=== PATIENT | female | born 1980 | race Caucasian/White ===

== ENCOUNTER 2017-05-23 08:15 | Emergency (ER) | payer MEDICAID ==
[~2017-05-23] VITALS: Ht 167.6 cm; Wt 56.7 kg
[2017-05-23 08:21] VITALS: BP 116/53
[2017-05-23] MEDS ORDERED: ONDANSETRON 4 MG ODT PO ONE (08:40)
--- NOTE | 2017-05-23 08:43 | NUR ---
PATIENT PRESENTS TO ED WITH C/O VOMITING SINCE 0500. PT STATES SHE HAS ABDOMINAL PAIN . DENIES DIARRHEA; SKIN IS PINK/WARM/DRY; AAOX4 WITH EVEN AND STEADY GAIT; LUNGS CLEAR BL; HR EVEN AND REGULAR; PT DENIES ANY FEVER, CP, SOB, OR COUGH AT THIS TIME; PATIENT STATES PAIN OF 0/10 AT THIS TIME; VSS; PATIENT POSITIONED FOR COMFORT; HOB ELEVATED; BEDRAILS UP X2; BED DOWN. ER MD WILL BE NOTIFIED.
--- NOTE | 2017-05-23 08:49 | NUR ---
MILA RAMÍREZ AT BEDSIDE.
--- NOTE | 2017-05-23 08:52 | NUR ---
XRAY AT BEDSIDE.
--- NOTE | 2017-05-23 08:58 | NUR ---
LAB AT BEDSIDE.
[2017-05-23 09:02] LABS: BASOPHILS # (AUTO) 0.1 K/uL (0.00-0.22); EOSINOPHILS # (AUTO) 0.1 K/uL (0-0.4); EOSINOPHILS % (AUTO) 1.4 % (0.0-4.0); HEMATOCRIT 36.3 % (36-48); HEMOGLOBIN 11.8 g/dL (12.0-16.0); LYMPHOCYTES # (AUTO) 0.4 K/uL (2.5-16.5); MEAN CORPUSCULAR HEMOGLOBIN 28 pg (27-31); MEAN CORPUSCULAR HGB CONC 33 g/dL (33-37); MEAN CORPUSCULAR VOLUME 87 fL (80-94); MONOCYTES # (AUTO) 0.3 K/uL (0.8-1.0); MONOCYTES % (AUTO) 3.7 % (1.7-9.3); NEUTROPHILS # (AUTO) 6.4 K/uL (1.8-7.7); NEUTROPHILS % (AUTO) 87.9 % (42.2-75.2); PLATELET COUNT (AUTO) 160 K/uL (140-450); RED BLOOD CELL COUNT(AUTO) 4.16 MIL/uL (4.20-5.40); RED CELL DISTRIBUTION WIDTH 15.8 % (11.6-13.7)
--- NOTE | 2017-05-23 09:22 | NUR ---
PO CHALLENGE DONE;PT VERBALIZES N AND V STOPPED;
[2017-05-23 09:25] LABS: ANION GAP 12.7 (8-16); CARBON DIOXIDE 27.4 mmol/L (21-32); CREATININE 0.8 mg/dL (0.6-1.3); POTASSIUM 3.1 mmol/L (3.5-5.1)
--- NOTE | 2017-05-23 09:28 | NUR ---
PT STILL IN PAIN;ASKED PT IF SHE WANTS SOME PAIN MEDICATION;PT STATES "NO" LONG I'M IN THIS POSITION I THINK I WILL BE OKAY"WILLL CONTINUE TO MONIOTR PT.
[2017-05-23 09:30] LABS: ALBUMIN 3.6 g/dL (3.4-5.0); TOTAL BILIRUBIN 0.3 mg/dL (0.0-1.0)
[2017-05-23 09:53] LABS: WHITE BLOOD COUNT (AUTO) 7.3 K/uL (4.8-10.8)
--- NOTE | 2017-05-23 10:10 | NUR ---
PT LYING ON BED;PT APPERS TO BE IN PAIN;ASKED PT IF SHE WANTS PAIN MEDICATION;PT RERFUSES PAIN MEDICATION;PAIN SCALE OF 5/10;WILL CONTINUE TO MONITOR PT.
[2017-05-23] MEDS ORDERED: HYDROcodone/APAP 5/325 MG 1 TAB TAB PO ONE (10:20)
--- NOTE | 2017-05-23 10:57 | NUR ---
ASKED PT IF SHE 'S OKAY TO GO HOME BECAUSE SHE LOOKS STILL IN PAIN;PT STATES YES I'M OKAY;I WANT TO GO HOME"
[2017-05-23 11:00] VITALS: BP 126/82
--- NOTE | 2017-05-23 11:00 | NUR ---
Patient discharged with v/s stable. Written and verbal after care instructions given and explained. Patient alert, oriented and verbalized understanding of instructions. Ambulatory with steady gait. All questions addressed prior to discharge. ID band removed. Patient advised to follow up with PMD. Rx of NITROFURANTOIN given. Patient educated on indication of medication including possible reaction and side effects. Opportunity to ask questions provided and answered.
== END 2017-05-23 11:00 | disposition home or self-care (01) ==
LOC: MED 08:15
DX: N39.0 Urinary tract infection, site not specified (principal); R11.2 Nausea with vomiting, unspecified; R10.9 Unspecified abdominal pain; Z85.038 Personal history of other malignant neoplasm of large intestine; Z88.0 Allergy status to penicillin; Z88.6 Allergy status to analgesic agent; Z88.8 Allergy status to other drugs, medicaments and biological substances
CPT/HCPCS: 36415; 71010; 80053; 81002; 81025; 83690; 85025; 99285; Q0092; S0119

== ENCOUNTER 2017-12-31 07:03 | Emergency (ER) | payer SELFPAY ==
[~2017-12-31] VITALS: Ht 167.6 cm; Wt 49.9 kg
[2017-12-31 07:10] VITALS: BP 121/63
--- NOTE | 2017-12-31 07:14 | NUR ---
PT TAKEN TO BED 2
--- NOTE | 2017-12-31 07:20 | NUR ---
37f bib friend with c/o 10/10 left ear pain since 0900 last night. Pt denies any injury, fevers, or trauma. swelling noted to left medial side of face. No discharge noted to left ear. Pt denies any changes in hearing. Pt is aox4 with steady gait. Skin warm/pink/dry. RR are even and unlabored. No acute distress at this time. Awaiting er md casey. Er md hummel aware of pt status. Will continue to monitor.
[2017-12-31] MEDS: fentaNYL 0.05 MG/ML VIAL IM ONE (08:16)
--- NOTE | 2017-12-31 08:18 | NUR ---
notified ct of negative test. awaiting ct.
[2017-12-31 08:55] VITALS: BP 115/75
--- NOTE | 2017-12-31 08:55 | NUR ---
Patient discharged with v/s stable. Written and verbal after care instructions given and explained. Patient alert, oriented and verbalized understanding of instructions. Ambulatory with steady gait. All questions addressed prior to discharge. ID band removed. Patient advised to follow up with PMD. Rx of Motrin and Cortisporin given. Patient educated on indication of medication including possible reaction and side effects. Opportunity to ask questions provided and answered.
== END 2017-12-31 08:55 | disposition home or self-care (01) ==
LOC: MED 07:03
DX: H92.02 Otalgia, left ear (principal); R03.0 Elevated blood-pressure reading, without diagnosis of hypertension; Z85.038 Personal history of other malignant neoplasm of large intestine; Z88.0 Allergy status to penicillin; Z88.5 Allergy status to narcotic agent; Z88.8 Allergy status to other drugs, medicaments and biological substances; Z90.89 Acquired absence of other organs
CPT/HCPCS: 70450; 81025; 96372; 99284; J3010

== ENCOUNTER 2018-01-03 19:52 | Emergency (ER) | payer SELFPAY ==
[~2018-01-03] VITALS: Ht 167.6 cm; Wt 58.5 kg
[2018-01-03 20:08] VITALS: BP 132/77
--- NOTE | 2018-01-03 20:14 | NUR ---
PT. AMBULATES TO ER [facility]
[2018-01-03 20:48] LABS: APPEARANCE,URINE TURBID (CLEAR); BILIRUBIN,URINE NEGATIVE (NEGATIVE); BLOOD, URINE 3+ (NEGATIVE); COLOR,URINE YELLOW (YELLOW); LEUKOCYTE ESTERASE ,URINE 3+ (NEGATIVE); NITRITE, URINE POSITIVE (NEGATIVE); UGLUCOSE NEGATIVE (NEGATIVE)
[2018-01-03 20:59] LABS: RBC,URINE 0-5 (RARE) /HPF (0-5); WBC,URINE 20-60 /HPF (0-5)
--- NOTE | 2018-01-03 21:14 | NUR ---
Dr. Falcon evaluating patient.
--- NOTE | 2018-01-03 21:30 | NUR ---
Pt presents to ED with right medial/posterior mass pain /. Pt states she feelt like the mass "popped" and is now experiancing excruciating pain. She is pacing in the room in distress. Pt states Hx of multiple tumors and feels that this one is causing the worst pain of her life. Pt is verbally aggressive toward staff and doctor. VSS. A&Ox4. Continue to monitor.
--- NOTE | 2018-01-03 21:36 | NUR ---
PT MOVED TO BED 11
[2018-01-03 21:41] LABS: BARBITURATE, URINE NEG. ng/ml (NEG <=200); BENZODIAZEPINE, URINE NEG. ng/mL (NEG <=200); CANNABINOID, URINE POS. ng/mL (NEG <=50); COCAINE, URINE NEG. ng/mL (NEG <=300); OPIATE, URINE NEG. ng/mL (NEG <=2000); PHENCYCLIDINE SCREEN,URINE NEG. ng/mL (NEG <=25)
[2018-01-03 22:20] VITALS: BP 132/77
== END 2018-01-03 22:20 | disposition home or self-care (01) ==
LOC: MED 19:52
DX: D17.23 Benign lipomatous neoplasm of skin and subcutaneous tissue of right leg (principal); D17.22 Benign lipomatous neoplasm of skin and subcutaneous tissue of left arm; N39.0 Urinary tract infection, site not specified; Z88.6 Allergy status to analgesic agent; Z88.0 Allergy status to penicillin
CPT/HCPCS: 80305; 81001; 87086; 87186; 99284

== ENCOUNTER 2018-04-07 08:49 | Inpatient (IN) | payer SELFPAY ==
[~2018-04-07] VITALS: Ht 167.6 cm; Wt 53.1 kg
[2018-04-07 08:51] VITALS: BP 126/61
--- NOTE | 2018-04-07 08:56 | NUR ---
PT AMBULATED TO ER BED 12
--- NOTE | 2018-04-07 09:03 | NUR ---
37 YO F BIB SELF W/ C/O VAGINAL BLEEDING X 28 HOURS. PT REPORTS SHE HAS BEEN SOAKING THROUGH A PAD (SATURATING) EVERY 2 HOURS WHILE ALSO WEARING A SUPER+ TAMPON. REPORTS THE BLEEDING BEGAN AFTER HAVING SEXUAL INTERCOURSE. REPORTS SHE USUALLY DOES HAVE SPOTTING FOLLOWING INTERCOURSE, BUT NEVER HEAVY BLEEDING . PT REPORTS SHE FELT "A BUMP" ON HER CERVIX AND IS VERY SCARED. DENIES N/V/D/FEVER/CHILLS. AAOX4. GCS 15. CMS INTACT. RR EVEN AND UNLABORED. LUNGS BILATERALLY CLEAR. ER MD PEREZ NOTIFIED. PT NEEDS MET. SAFETY PRECAUTIONS IN PLACE. WILL CONTINUE TO MONITOR.
[2018-04-07 09:54] LABS: BASOPHILS # (AUTO) 0.1 K/uL (0.00-0.22); BASOPHILS % (AUTO) 1.3 % (0.0-2.0); EOSINOPHILS # (AUTO) 0.2 K/uL (0-0.4); HEMATOCRIT 42.9 % (36-48); HEMOGLOBIN 14.5 g/dL (12.0-16.0); LYMPHOCYTES # (AUTO) 1.2 K/uL (2.5-16.5); LYMPHOCYTES % (AUTO) 19.6 % (20.5-51.1); MEAN CORPUSCULAR HEMOGLOBIN 32 pg (27-31); MEAN CORPUSCULAR HGB CONC 34 g/dL (33-37); MONOCYTES # (AUTO) 0.5 K/uL (0.8-1.0); MONOCYTES % (AUTO) 7.3 % (1.7-9.3); NEUTROPHILS # (AUTO) 4.4 K/uL (1.8-7.7); NEUTROPHILS % (AUTO) 68.8 % (42.2-75.2); PLATELET COUNT (AUTO) 189 K/uL (140-450); RED BLOOD CELL COUNT(AUTO) 4.61 MIL/uL (4.20-5.40); RED CELL DISTRIBUTION WIDTH 13.7 % (11.6-13.7); WHITE BLOOD COUNT (AUTO) 6.3 K/uL (4.8-10.8)
--- NOTE | 2018-04-07 10:00 | NUR ---
PT BLED THROUGH CHUK THAT WAS PLACED BENEATH HER WHILE ALSO WEARING A PAD AND TAMPON. CHUK CHANGED AND PT REQUESTED AN ADULT BREIF, WHICH WAS SUPPLIED. PT DENIES DIZZINESS AT THIS TIME. SIDE RAILS UP X 2 FOR SAFETY R/T BLOOD LOSS. VSS. WILL CONTINUE TO MONITOR.
[2018-04-07 10:22] LABS: APPEARANCE,URINE TURBID (CLEAR); BILIRUBIN,URINE 1+ (NEGATIVE); BLOOD, URINE 3+ (NEGATIVE); COLOR,URINE RED (YELLOW); LEUKOCYTE ESTERASE ,URINE 3+ (NEGATIVE); NITRITE, URINE POSITIVE (NEGATIVE); UGLUCOSE NEGATIVE (NEGATIVE)
[2018-04-07 10:37] LABS: ANION GAP 14.8 (8-16); CARBON DIOXIDE 23.9 mmol/L (21-32); CREATININE 0.9 mg/dL (0.6-1.3); POTASSIUM 3.7 mmol/L (3.5-5.1)
[2018-04-07 10:39] LABS: RBC,URINE 11-20 (MOD) /HPF (0-5); WBC,URINE 80-100 /HPF (0-5)
[2018-04-07 10:43] LABS: ALBUMIN 4.2 g/dL (3.4-5.0); TOTAL BILIRUBIN 0.5 mg/dL (0.0-1.0)
--- NOTE | 2018-04-07 11:10 | NUR ---
PT TAKEN TO CT AT THIS TIME VIA [place].
--- NOTE | 2018-04-07 11:34 | NUR ---
pelvic exam done at this time by er md bailey accompanied by KELSEY Frederick. pt actively and heavily bleeding. VSS. Will continue to monitor.
[2018-04-07] MEDS ORDERED: cefTRIAXone 1,000 MG VIAL ONE (13:42)
[2018-04-07] MEDS: NACL 0.9% 1,000 ML IV SCH (14:17)
[2018-04-07] MEDS ORDERED: ACETAMINOPHEN 325 MG TAB PO PRN (14:20)
[2018-04-07] MEDS ORDERED: ONDANSETRON 4 MG/2 ML VIAL IM/IVP PRN (14:20)
--- NOTE | 2018-04-07 15:01 | NUR ---
Patient will be admitted to care of DR. STAFFORD. Admited to . Will go to room. Belongings list completed. Report to .
[2018-04-07 15:15] VITALS: BP 134/87
--- NOTE | 2018-04-07 15:15 | NUR ---
PATIENT ARRIVED VIA GURNEY. RECEIVED REPORT FROM TELE NURSE TERESA WHO RECEIVED REPORT FROM [place] NURSE. PATIENT IS ALERT AND ORIENTED X4. NO RESPIRATORY DISTRESS OR RESPIRATORY DEPRESSION NOTED. NO COMPLAINTS OF PAIN. PATIENT HAS AN IV ON RIGHT AC 20 G. PER REPORT PATIENT HAS BLOOD ON DRESSING AROUND VAGINAL AREA. PUT CALL LIGHT WITHIN REACH OF PATIENT. UPDATED BOARD IN PATIENT'S ROOM. LOWERED BED TO LOWEST SETTING. WILL CONTINUE TO MONITOR PATIENT.
[2018-04-07 15:21] LABS: BARBITURATE, URINE NEG. ng/ml (NEG <=200); BENZODIAZEPINE, URINE NEG. ng/mL (NEG <=200); CANNABINOID, URINE POS. ng/mL (NEG <=50); COCAINE, URINE NEG. ng/mL (NEG <=300); OPIATE, URINE NEG. ng/mL (NEG <=2000); PHENCYCLIDINE SCREEN,URINE NEG. ng/mL (NEG <=25)
[2018-04-07 15:33] LABS: CHOL/HDL RATIO 3.2 (1-4.5); MAGNESIUM 1.6 mg/dL (1.8-2.4); PHOSPHORUS 3.4 mg/dL (2.5-4.9); THYROID STIMULATING HORMONE 1.74 uIU/mL (0.34-3.74)
[2018-04-07 16:00] VITALS: BP 110/57
[2018-04-07] MEDS ORDERED: MAG SULF 2000 MG/WATER PREMIX 50 ML IV SCH (17:00)
[2018-04-07] MEDS: TAMSULOSIN 0.4 MG CAP PO SCH (17:30)
--- NOTE | 2018-04-07 18:46 | NUR ---
PATIENT RESTING IN BED AT THIS TIME. NO DISTRESS NOTED. WILL CONTINUE TO MONITOR PATIENT.
--- NOTE | 2018-04-07 19:17 | NUR ---
GAVE REPORT TO NIGHTSHIFT NURSE AT BEDSIDE. PATIENT IN STABLE CONDITION.
--- NOTE | 2018-04-07 19:18 | NUR ---
RECEIVED BEDSIDE REPORT FROM DAY SHIFT NURSE ELVIN RN, PT STABLE, NO DISTRESS NOTED, IV TO L AC 20G RUNNING NS @ 90ML/HR, INFUSING WELL, PT ON ROOM AIR NO SOB, INITIAL ASSESSMENT DONE, ALL SAFETY PRECAUTION MET, WILL CONTINUE TO MONITOR.
--- NOTE | 2018-04-07 19:37 | NUR ---
DISCOVERED PATIENT HAVING CHEST PAIN, GRIMACING AND MOANING. PATIENT IT APPEARS IN DISTRESS. PATIENT'S RADIAL PULSE IS EVIDENT AND IS TACHYCARDIC. PATIENT IS DIAPHORETIC. HOOKED UP PATIENT TO VITAL SIGNS MACHINE. PATIENT IS TACHYCARDIC ON THE V/S MACHINE AT 143. BLOOD PRESSURE IS WITHIN NORMAL LIMITS. O2 SATURATION REMAINS STABLE AT 97%. NOTIFIED CHARGE NURSE OF FINDINGS.
[2018-04-07] MEDS: HYDROcodone/APAP 10/325 MG 1 TAB TAB PO PRN (19:47)
--- NOTE | 2018-04-07 19:48 | NUR ---
PT HAVING CHEST PAIN /, SHARP AND STABBING, PT STATED THE PAIN IS INTERMITTENT, PT IS CRYING, AND MOANING, BP 12/78 , HR IN THE 130S, O2 SAT AT 100%, PT ON ROOM AIR, PUT PT ON TELE MONITOR, O2 2LPM ON NC, NOTIFIED DR. SLADE, REGARDING PT CONDITION, SAID TO ORDER STAT EKG, H&H AND TROPONIN, AND GIVE PT NORCO FOR THE PAIN, ORDERS PUT IN, ADMINISTERED NORCO TO PT, PT TOLERATED WELL, WILL CONTINUE TO MONITOR. Addendum: 04/07/18 at 2015 by Elizabeth Cotton RN PT STATED PAIN STARTED ON THE CHEST AROUND THE STERNUM AREA, SHARP AND THROBBING AND IT FELT LIKE PRESSURE.
[2018-04-07 20:00] VITALS: BP 115/53
[2018-04-07 20:00] LABS: HEMATOCRIT 40.5 % (36-48); HEMOGLOBIN 13.9 g/dL (12.0-16.0)
--- NOTE | 2018-04-07 20:17 | NUR ---
DR. SLADE SAW PT, STATED TO KEEP PT ON TELE MONITORING. PT RESTING, NO DISTRESS NOTED, PT STATED PAIN IS INTERMITTENT AT THIS MOMENT, COMES AND GOES, PT ON 2LPM O2 VIA NC, NO SOB, CALL LIGHT WITHIN REACH, WILL CONTINUE TO MONITOR.
--- NOTE | 2018-04-07 21:10 | NUR ---
CHECKED ON PT, PT RESTING ON BED, NO DISTRESS NOTED, STATED PAIN IS TOLERABLE AT THIS MOMENT, CALL LIGHT WITHIN REACH, WILL CONTINUE TO MONITOR.
--- NOTE | 2018-04-07 23:40 | NUR ---
PT SLEEPING, EASY TO AROUSE, NO DISTRESS NOTED, V/S TAKEN, WNL, DENIES ANY PAIN AT THIS MOMENT, CALL LIGHT WITHIN REACH, WILL CONTINUE TO MONITOR.
[2018-04-08] VITALS: BP 109/53
--- NOTE | 2018-04-08 02:10 | NUR ---
CHECKED ON PT, PT SLEEPING, NO DISTRESS NOTED, CALL LIGHT WITHIN REACH, WILL CONTINUE TO MONITOR.
[2018-04-08 04:00] VITALS: BP 102/47
--- NOTE | 2018-04-08 04:10 | NUR ---
PT SLEEPING, EASY TO AROUSE, V/S TAKEN, WNL, PT STABLE, NO DISTRESS NOTED, CALL LIGHT WITHIN REACH, WILL CONTINUE TO MONITOR.
[2018-04-08] MEDS: NACL 0.9% 1,000 ML IV SCH ×2 (04:13→13:00)
[2018-04-08 06:52] LABS: BASOPHILS # (AUTO) 0.1 K/uL (0.00-0.22); BASOPHILS % (AUTO) 1.7 % (0.0-2.0); EOSINOPHILS # (AUTO) 0.1 K/uL (0-0.4); EOSINOPHILS % (AUTO) 2.2 % (0.0-4.0); HEMATOCRIT 37.2 % (36-48); HEMOGLOBIN 12.7 g/dL (12.0-16.0); LYMPHOCYTES # (AUTO) 1.6 K/uL (2.5-16.5); LYMPHOCYTES % (AUTO) 25.3 % (20.5-51.1); MEAN CORPUSCULAR HEMOGLOBIN 32 pg (27-31); MEAN CORPUSCULAR HGB CONC 34 g/dL (33-37); MEAN CORPUSCULAR VOLUME 92.8 fL (80-94); MONOCYTES # (AUTO) 0.5 K/uL (0.8-1.0); MONOCYTES % (AUTO) 8.3 % (1.7-9.3); NEUTROPHILS # (AUTO) 3.9 K/uL (1.8-7.7); NEUTROPHILS % (AUTO) 62.5 % (42.2-75.2); PLATELET COUNT (AUTO) 156 K/uL (140-450); RED BLOOD CELL COUNT(AUTO) 4.01 MIL/uL (4.20-5.40); RED CELL DISTRIBUTION WIDTH 13.7 % (11.6-13.7); WHITE BLOOD COUNT (AUTO) 6.2 K/uL (4.8-10.8)
--- NOTE | 2018-04-08 07:18 | NUR ---
ENDORSED PT TO DAY SHIFT NURSE PAU COLE, PT IN STABLE CONDITION, NO DISTRESS NOTED, CALL LIGHT WITHIN REACH. Addendum: 04/08/18 at 0721 by Elizabeth Cotton RN ELVIN COLE
--- NOTE | 2018-04-08 07:18 | NUR ---
RECEIVED REPORT FROM NIGHTSHIFT NURSE AT BEDSIDE. UPDATED ON PATIENT'S CONDITION. PATIENT IS ALERT AND ORIENTED X4. NO DISTRESS NOTED. NO COMPLAINTS OF PAIN. IV NOTED ON RIGHT AC 20G RUNNING 90 ML/HR NORMAL SALINE. UPDATED BOARD IN PATIENT'S ROOM. PATIENT IS AWARE THAT SHE STILL IS NPO. PUT CALL LIGHT WITHIN REACH OF PATIENT. ENCOURAGED PATIENT TO CALL IF SHE NEEDS HELP WITH ANYTHING. LOWERED BED TO LOWEST SETTING. WILL CONTINUE TO MONITOR PATIENT.
[2018-04-08 07:23] LABS: ANION GAP 14.4 (8-16); CARBON DIOXIDE 22.1 mmol/L (21-32); CREATININE 0.8 mg/dL (0.6-1.3); POTASSIUM 3.5 mmol/L (3.5-5.1)
[2018-04-08 07:27] LABS: MAGNESIUM 1.8 mg/dL (1.8-2.4); PHOSPHORUS 3.7 mg/dL (2.5-4.9)
[2018-04-08 08:00] VITALS: BP 103/49
--- NOTE | 2018-04-08 08:14 | NUR ---
PATIENT TOOK AM MEDICATION. PATIENT TOLERATED WELL.
[2018-04-08] MEDS ORDERED: TAMSULOSIN 0.4 MG CAP PO SCH (08:30)
--- NOTE | 2018-04-08 10:10 | NUR ---
PATIENT RESTING AT THIS TIME. NO DISTRESS NOTED. WILL CONTINUE TO MONITOR PATIENT.
[2018-04-08 10:15] LABS: T4 (THYROXINE) 10.1 ug/dL (4.5-12.0)
[2018-04-08] MEDS ORDERED: CALCIUM CARBONATE 500 MG TAB PO SCH (10:30)
[2018-04-08 12:00] VITALS: BP 111/54
--- NOTE | 2018-04-08 13:24 | NUR ---
PATIENT IS RESTING IN BED AT THIS TIME IN LEFT LATERAL POSITION. PATIENT SHOWS NO SIGNS OF DISTRESS. NO COMPLAINTS OF PAIN. WILL CONTINUE TO MONITOR PATIENT.
--- NOTE | 2018-04-08 15:38 | NUR ---
PATIENT RESTING IN BED. NO DISTRESS. WILL CONTINUE TO MONITOR PATIENT.
[2018-04-08 16:27] VITALS: BP 109/59
--- NOTE | 2018-04-08 18:11 | NUR ---
PATIENT EATING DINNER AT THIS TIME. FAMILY MEMBER AT BEDSIDE. PATIENT AWARE THAT SHE'LL BE NPO AFTER MIDNIGHT AGAIN.
[2018-04-08] MEDS: TAMSULOSIN 0.4 MG CAP PO SCH (18:12)
--- NOTE | 2018-04-08 19:05 | NUR ---
RECEIVED REPORT FROM DAY SHIFT NURSE ELVIN, PT IN BED WITH FAMILY MEMBER AT BEDSIDE, PT ALERT AND ABLE TO COMMUNICATE, NO SIGNS OF DISTRESS, PT CLAIMS IV ON RIGHT AC WAS LEAKING, WILL ASSESS AND DETERMINE OF NEEDS TO BE CHANGED. WILL EDUCATE NEEDED AND REVIEW PLAN OF CARE. CALL LIGHT WITHIN REACH, BED IN LOWEST POSITION, WILL CONTINUE FREQ CHECKS.
--- NOTE | 2018-04-08 19:06 | NUR ---
GAVE REPORT TO NIGHTSHIFT NURSE AT BEDSIDE. PATIENT IS IN STABLE CONDITION.
[2018-04-08 20:00] VITALS: BP 110/53
[2018-04-08] MEDS: CALCIUM CARBONATE 500 MG TAB PO SCH (20:25)
--- NOTE | 2018-04-08 20:25 | NUR ---
PT TOLERATED MEDICATIONS WELL, FAMILY AT BEDSIDE, CALL LIGHT WITHIN REACH, WILL CONTINUE TO MONITOR AND ENSURE FREQ CHECKS.
--- NOTE | 2018-04-08 23:29 | NUR ---
ENDORSED PT TO CHARGE NURSE UMU FOR CONTINUED CARE, PT IS STABLE, NO SIGNS DISTRESS.
--- NOTE | 2018-04-08 23:30 | NUR ---
RECEIVED PT FROM VIRIDIANA FOR CONTINUITY OF CARE.
--- NOTE | 2018-04-08 23:31 | NUR ---
PT STATUS DOWNGRADE TO MED/SURGE.
[2018-04-09] VITALS: BP 103/47
--- NOTE | 2018-04-09 | NUR ---
CHECKED PT STILL AWAKE, INSTRUCTED NOT TO EAT OR DRINK AFTER MN DUE TO SURGERY IN THE AM. PT IS AWARE AND VOICE UNDERSTANDING.
--- NOTE | 2018-04-09 02:00 | NUR ---
PT SLEEPING COMFORTABLY WHEN CHECKED, NO RESPIRATORY DISTRESS NOTED.
[2018-04-09] MEDS: NACL 0.9% 1,000 ML IV SCH (04:23)
--- NOTE | 2018-04-09 04:50 | NUR ---
PT IV LEAKING, IV REMOVED CANULA INTACT. IV RESTARTED WITH @20 GAUGE IN THE L AC
--- NOTE | 2018-04-09 06:15 | NUR ---
REINFORCED NPO STATUS, PT IS AWARE.
[2018-04-09 07:01] LABS: BASOPHILS # (AUTO) 0.1 K/uL (0.00-0.22); BASOPHILS % (AUTO) 0.9 % (0.0-2.0); EOSINOPHILS # (AUTO) 0.2 K/uL (0-0.4); EOSINOPHILS % (AUTO) 3.8 % (0.0-4.0); HEMATOCRIT 35.2 % (36-48); LYMPHOCYTES # (AUTO) 1.6 K/uL (2.5-16.5); LYMPHOCYTES % (AUTO) 27.6 % (20.5-51.1); MEAN CORPUSCULAR HEMOGLOBIN 32 pg (27-31); MEAN CORPUSCULAR HGB CONC 34 g/dL (33-37); MEAN CORPUSCULAR VOLUME 93.3 fL (80-94); MONOCYTES # (AUTO) 0.4 K/uL (0.8-1.0); MONOCYTES % (AUTO) 6.9 % (1.7-9.3); NEUTROPHILS # (AUTO) 3.4 K/uL (1.8-7.7); NEUTROPHILS % (AUTO) 60.8 % (42.2-75.2); PLATELET COUNT (AUTO) 151 K/uL (140-450); RED BLOOD CELL COUNT(AUTO) 3.78 MIL/uL (4.20-5.40); RED CELL DISTRIBUTION WIDTH 13.5 % (11.6-13.7); WHITE BLOOD COUNT (AUTO) 5.7 K/uL (4.8-10.8)
--- NOTE | 2018-04-09 07:25 | NUR ---
REPORT GIVEN TO PAU.
[2018-04-09 07:30] LABS: ANION GAP 11.2 (8-16); CARBON DIOXIDE 23.5 mmol/L (21-32); CREATININE 0.7 mg/dL (0.6-1.3); POTASSIUM 3.7 mmol/L (3.5-5.1)
[2018-04-09 08:00] VITALS: BP 95/45
--- NOTE | 2018-04-09 08:11 | NUR ---
PATIENTS 16 YEAR OLD DAUGHTER IS IN THE ROOM. ASKED PATIENT IF SHE HAS ANYONE ELSE WHO CAN BE WITH HER WHILE SHE IS GETTING HER PROCEDURE DONE. PATIENT BEGAN CALLING DAUGHTERS GRANDMOTHER TO SEE IF SHE CAN WATCH HER.
[2018-04-09] MEDS: CALCIUM CARBONATE 500 MG TAB PO SCH (10:06)
[2018-04-09] MEDS ORDERED: fentaNYL 0.05 MG/ML VIAL ONE (12:01)
[2018-04-09] MEDS ORDERED: MIDAZOLAM 2 MG/2 ML VIAL ONE ×2 (12:01)
--- NOTE | 2018-04-09 12:49 | NUR ---
RADIOLOGY HERE TO TAKE PATIENT FOR PROCEDURE. CONSENT HAS BEEN SIGNED ALREADY. PATIENTS DAUGHTER IS WAITING IN THE ROOM WITH HER FATHER.
[2018-04-09] MEDS ORDERED: fentaNYL 0.05 MG/ML VIAL IVP ONE (13:55)
[2018-04-09] MEDS ORDERED: MIDAZOLAM 2 MG/2 ML VIAL IVP ONE (13:55)
--- NOTE | 2018-04-09 14:09 | NUR ---
04/09/18 RD INITIAL ASSESSMENT COMPLETED PLEASE REFER TO NUTRITION ASSESSMENT UNDER CARE ACTIVITY FOR ESTIMATED NUTRITIONAL NEEDS. 1. CONTINUE NPO MEDICALLY APPROPRIATE 2. IF/WHEN MEDICALLY APPROPRIATE, ADVANCE DIET TO REGULAR 3. PROVIDE NUTRITION EDUCATION FOR COLECTOMY 4. RD TO FOLLOW-UP 2-3 DAYS, HIGH RISK RAINER PARIKH RD
--- NOTE | 2018-04-09 14:15 | NUR ---
PATIENT BACK FROM PROCEDURE. WILL CONTINUE TO MONITOR.
[2018-04-09] MEDS: HYDROcodone/APAP 10/325 MG 1 TAB TAB PO PRN (14:41)
--- NOTE | 2018-04-09 14:55 | NUR ---
PATIENT HAS BEEN SCREENED AND CATEGORIZED HIGH NUTRITION RISK. PATIENT WILL BE SEEN WITHIN 1-2 DAYS OF ADMISSION. 04/09/18 04/10/[address]
[2018-04-09] MEDS ORDERED: LEVO500T2 PO (15:41)
[2018-04-09] MEDS ORDERED: TAMS0.4C96 PO (15:41)
[2018-04-09 16:00] VITALS: BP 111/54
--- NOTE | 2018-04-09 18:45 | NUR ---
DISCHARGE ORDER HAS BEEN IN PLACE. GAVE PATIENT INSTRUCTIONS ON HOW TO FLUSH HER NEPHROSTOMY TUBE AND DEMONSTRATED IT TO HER. PROVIDED HER WITH FLUSHES FOR THE THE NEXT 22 HRS. PATIENT VERBALIZED UNDERSTANDING. PRESENT FOR INSTRUCTION. INFORMED HER THAT SHE HAS A PRESCRIPTION IN HER DISCHARGE PACKET WELL WENT OVER THE INSTRUCTIONS THAT THE DOCTOR GAVE HER. INFORMED HER TO SEEK EMERGENCY MEDICAL ATTENTION IS S/S WORSEN. IV REMOVED FROM SITE. ALL BELONGINGS ARE WITH THE PATIENT. ID BAND REMOVED. CHELLE COLE WHEELED PATIENT OUT.
== END 2018-04-09 18:45 | disposition home or self-care (01) | DRG 694 ==
LOC: MED 08:49 → MTU 14:23
PROVIDERS: ADMIT General Practice; ATTEND General Practice
PROC: 0T9430Z Drainage of Left Kidney Pelvis with Drainage Device, Percutaneous Approach (ICD-10-PCS; principal; 2018-04-09 13:00)
DX: N13.2 Hydronephrosis with renal and ureteral calculous obstruction (principal); N39.0 Urinary tract infection, site not specified; N93.8 Other specified abnormal uterine and vaginal bleeding; N83.202 Unspecified ovarian cyst, left side; K52.9 Noninfective gastroenteritis and colitis, unspecified; F12.90 Cannabis use, unspecified, uncomplicated; E83.51 Hypocalcemia; Z85.038 Personal history of other malignant neoplasm of large intestine; Z90.49 Acquired absence of other specified parts of digestive tract; Z91.19 Patient's noncompliance with other medical treatment and regimen; Z88.2 Allergy status to sulfonamides; Z88.8 Allergy status to other drugs, medicaments and biological substances; Z80.9 Family history of malignant neoplasm, unspecified
CPT/HCPCS: 36415; 50432; 76770; 76830; 80048; 80053; 80305; 81001; 81025; 83036; 83690; 83735; 84100; 84436; 84443; 84479; 84484; 84702; 85018; 85025; 85610; 85730; 86304; 86900; 86901; 87081; 87086; 87186; 93005; 96365; 99285; C1729; J0696; J2250; J3010; J3475; J7030; J7060; Q0092; Q9967

== ENCOUNTER 2018-04-26 18:05 | Emergency (ER) | payer SELFPAY ==
[~2018-04-26] VITALS: Ht 167.6 cm; Wt 61.7 kg
[~2018-04-26 18:05] MED LIST: LEVO500T2 PO; TAMS0.4C96 PO
[2018-04-26 18:08] VITALS: BP 114/64
--- NOTE | 2018-04-26 18:16 | NUR ---
PT AMBULATES TO BED 4
--- NOTE | 2018-04-26 18:17 | NUR ---
37/F BIB FAMILY C/O GENERALIZED RASH TO ABD, BACK , AND LEGS X 1 WEEK. REPORTS SEVERE ITCHINESS, AND REDNESS. DENIES FEVER OR SOB. PT WAS SEEN AT [facility] 2 DAYS AGO AND DC'D WITH BENADRYL CREAM WITH NO RELIEF. HX: COLON CA IN REMISSION SINCE 1994. NEPHROSTOMY PLACED 04/09/18. DENIES N/V/D; SKIN IS PINK/WARM/DRY; AAOX4 WITH EVEN AND STEADY GAIT; LUNGS CLEAR BL; HR EVEN AND REGULAR; PT DENIES ANY FEVER, CP, SOB, OR COUGH AT THIS TIME; PATIENT STATES PAIN OF 5/10 AT THIS TIME. PATIENT POSITIONED FOR COMFORT; HOB ELEVATED; BEDRAILS UP X2; BED DOWN. ER MD MADE AWARE OF PT STATUS.
--- NOTE | 2018-04-26 18:25 | NUR ---
Patient being evaluated by DR Espinal at bedside.
[2018-04-26] MEDS ORDERED: DEXAMETHASONE 10 MG/ML VIAL IM ONE (18:30)
[2018-04-26] MEDS ORDERED: ALBUTEROL 0.083% 2.5 MG/3 ML NEBU INH ONE (18:30)
--- NOTE | 2018-04-26 18:41 | NUR ---
RT AT BEDSIDE FOR BREATHING TREATMENT.
[2018-04-26 19:04] VITALS: BP 108/67
--- NOTE | 2018-04-26 19:04 | NUR ---
Patient discharged with v/s stable. Written and verbal after care instructions given and explained. Patient alert, oriented and verbalized understanding of instructions. Ambulatory with steady gait. All questions addressed prior to discharge. ID band removed. Patient advised to follow up with PMD. Rx of given. Patient educated on indication of PREDNISONE, PEPCID,VISTARIL & ALBUTEROLmedication including possible reaction and side effects. Opportunity to ask questions provided and answered.
== END 2018-04-26 19:04 | disposition home or self-care (01) ==
LOC: MED 18:05
DX: L50.9 Urticaria, unspecified (principal); Z85.038 Personal history of other malignant neoplasm of large intestine; Z79.899 Other long term (current) drug therapy; Z88.0 Allergy status to penicillin; Z88.6 Allergy status to analgesic agent; Z88.8 Allergy status to other drugs, medicaments and biological substances
CPT/HCPCS: 96372; 99283; J1100; J7613; 94640

== ENCOUNTER 2018-05-05 12:34 | Emergency (ER) | payer MEDICAID ==
[~2018-05-05] VITALS: Ht 170.2 cm; Wt 57.3 kg
[2018-05-05 12:52] VITALS: BP 115/68
--- NOTE | 2018-05-05 13:16 | NUR ---
37 Y/O F W/C/O OF, "MY URINE SMELLS, AND I'VE HAD THIS SAME URINE BAG SINCE March. I ALSO HAVE WHITE CLOTS IN THE TUBING." URINE BAG WITH TUBE ENTERENCE ON L FLANK. PT STATES IT WAS PLACED FOR, "A LARGE STRONGHORN AND KIDNEY STONES." PT DENIES N/V/D/PAIN AT THIS TIME. PT STATES HER PCP SAID TO KEEP BAG IN UNTIL JULY AND SHE HAS AN APPT TO FOLLOW UP IN MAY. DARK, CLOUDY, YELLOW URINE NOTED IN BAG. PMH: COLON CA, MULTIPLE TUMOR REMOVAL, C-SECTIONS. ALLERGIES: BENYDRYL, ASPRIN, PENICILLINS.
--- NOTE | 2018-05-05 14:04 | NUR ---
TALKED WITH VOCATIONAL PSYCHOLOGIST JUDY TO ASK WHERE I COULD FIND SOMEONE IN SURGERY FOR A NEPHROSTOMY BAG. HE STATED SURGERY WAS IN THE UNIT. WHEN I WENT NO ONE WAS IN THE UNIT. PAGED SURGERY TO GIVE A CALL
[2018-05-05] MEDS ORDERED: traMADol 50 MG TAB PO ONE (14:30)
[2018-05-05 15:09] VITALS: BP 120/68
== END 2018-05-05 14:04 | disposition home or self-care (01) ==
LOC: MED 12:34
DX: N20.0 Calculus of kidney (principal); Z93.6 Other artificial openings of urinary tract status; J45.909 Unspecified asthma, uncomplicated; Z85.038 Personal history of other malignant neoplasm of large intestine; Z90.89 Acquired absence of other organs; Z88.0 Allergy status to penicillin; Z88.8 Allergy status to other drugs, medicaments and biological substances; Z88.6 Allergy status to analgesic agent
CPT/HCPCS: 99283

== ENCOUNTER 2018-06-01 21:27 | Inpatient (IN) | payer MEDICAID, OTHER ==
[~2018-06-01] VITALS: Ht 170.2 cm; Wt 56.7 kg
[2018-06-01 21:35] VITALS: BP 131/53
--- NOTE | 2018-06-01 21:41 | NUR ---
PT AMBULATED TO ER BED 11.
--- NOTE | 2018-06-01 21:45 | NUR ---
PATIENT PRESENTS TO ED D/T LOW URINE OUTPUT. PATIENT WAS DISCHARGED FROM [facility] 04/09/18 WITH A NEPHROSTOMY BAG. PATIENT STATES SHE HAS NOT URINATED ALL DAY TODAY, PATIENT STATES SHE USUALLY EMPTIES HER BAG MULTIPLE TIMES A DAY AND STATES SHE HAS NOT URINATED EXCEPT FOR 20 ML. PATIENT STAES SHE IS STAYING WELL HYDRATED. PATIENT STATES SHE WAS TAKING LEVOFLOXACIN D/T UTI AND ENDED YESTERDAY 05/31/18. PATIENT STATES LOWER BACK PAIN 4/10 AT THIS TIME. PATIENT DENIES ANY VOMITING OR FEVERS. PATIENT STATES FEELING "AIR" TRAPPED INSIDE HER BODY. ER MD MADE AWARE OFPATIETN STATUS. WILL CONTINUE TO MONITOR.
--- NOTE | 2018-06-01 22:08 | NUR ---
PATIENT TO CT
[2018-06-01 22:15] LABS: APPEARANCE,URINE CLOUDY (CLEAR); BILIRUBIN,URINE NEGATIVE (NEGATIVE); BLOOD, URINE 3+ (NEGATIVE); COLOR,URINE YELLOW (YELLOW); LEUKOCYTE ESTERASE ,URINE 1+ (NEGATIVE); NITRITE, URINE POSITIVE (NEGATIVE); UGLUCOSE NEGATIVE (NEGATIVE)
[2018-06-01 22:17] LABS: BASOPHILS % (AUTO) 0.7 % (0.0-2.0); EOSINOPHILS # (AUTO) 0.4 K/uL (0-0.4); EOSINOPHILS % (AUTO) 6.1 % (0.0-4.0); HEMOGLOBIN 13.7 g/dL (12.0-16.0); LYMPHOCYTES # (AUTO) 1.9 K/uL (2.5-16.5); LYMPHOCYTES % (AUTO) 28.3 % (20.5-51.1); MEAN CORPUSCULAR HEMOGLOBIN 31 pg (27-31); MEAN CORPUSCULAR HGB CONC 33 g/dL (33-37); MEAN CORPUSCULAR VOLUME 93.8 fL (80-94); MONOCYTES # (AUTO) 0.5 K/uL (0.8-1.0); MONOCYTES % (AUTO) 7.4 % (1.7-9.3); NEUTROPHILS # (AUTO) 3.8 K/uL (1.8-7.7); NEUTROPHILS % (AUTO) 57.5 % (42.2-75.2); PLATELET COUNT (AUTO) 173 K/uL (140-450); RED BLOOD CELL COUNT(AUTO) 4.48 MIL/uL (4.20-5.40); RED CELL DISTRIBUTION WIDTH 14.4 % (11.6-13.7); WHITE BLOOD COUNT (AUTO) 6.6 K/uL (4.8-10.8)
[2018-06-01 22:24] LABS: CARBON DIOXIDE 24.9 mmol/L (21-32); CREATININE 0.8 mg/dL (0.6-1.3); POTASSIUM 3.9 mmol/L (3.5-5.1)
[2018-06-01 22:27] LABS: RBC,URINE 20-50 /HPF (0-5)
[2018-06-01 22:28] LABS: WBC,URINE TOO MANY TO COUNT /HPF (0-5)
[2018-06-01 22:29] LABS: URINE AMORPHOUS URATE 1+ /HPF (None Seen)
[2018-06-01 22:30] LABS: ALBUMIN 4.3 g/dL (3.4-5.0); TOTAL BILIRUBIN 0.2 mg/dL (0.0-1.0)
[2018-06-01] MEDS ORDERED: VANCOMYCIN 1,000 MG in DEXTROSE 5% 250 ML IV ONE (22:55)
[2018-06-01] MEDS ORDERED: VANCOMYCIN 1,000 MG VIAL ONE (23:03)
[2018-06-01] MEDS ORDERED: HYDR25CA1 PO (23:03)
[2018-06-02] MEDS: NACL 0.9% 1,000 ML IV SCH ×3 (00:21→13:55)
[2018-06-02 00:45] VITALS: BP 109/44
--- NOTE | 2018-06-02 00:47 | NUR ---
PT ARRIVED VIA W/C TO UNIT AND WAS PUSHED TO RM 119 WHERE SHE AMBULATED TO THE BED. REPORT GIVEN BY DORI COLE ER NIGHT NURSE, PT IN STABLE CONDITION.
--- NOTE | 2018-06-02 00:59 | NUR ---
Pt report given to UMU COLE. Transfer of care at this time.
--- NOTE | 2018-06-02 01:00 | NUR ---
PT SITTING IN LOW BED SIDE RAILS UP X 2, SHE IS AO X 4, SKIN INTACT EXCEPT FOR SURGICAL SCARS, AND LEFT SIDED NEPHROSTOMY TUBE. NEPHROSTOMY BAG EMPTYING ABOUT 100 MLS OF CLOUDY URINE. PT AMBULATES ON HER OWN, DRESSING FOR NEPHROSTOMY TUBE IN PLACE, PT ASKING FOR STAY FIXATION DEVICE DUE TO PT HAVING SENSITIVE SKIN. PT NOW HAS A RASH AROUND DRESSING DUE TO OLD DRESSING . PT HAS HX OF BOWEL RESECTION AND HAS NO COLON DUE TO COLON CA WHEN SHE WAS 15. FAMILY HX INCLUDES FATHER SIDE OF COLON HISTORY MOTHER HAS HISTORY STROKE AND LUPUS. V/S FOLLOWS T 98.1 P 64 R 18 B/P 109/44 02 99% ON R/A.
--- NOTE | 2018-06-02 05:00 | NUR ---
PT ASLEEP NO S/S OF PAIN OR DISTRESS NOTED IV SITE ON R F/A INTACT 20 G AND RUNNING N/S AT 125MLS/HR. PT DAUGHTER AT BEDSIDE
--- NOTE | 2018-06-02 07:07 | NUR ---
PATIENT HAS BEEN SCREENED AND CATEGORIZED HIGH RISK. PATIENT WILL BE SEEN WITHIN 1-2 DAYS OF ADMISSION. 06/03- [facility]AC[facility] PEREIRA [address]
--- NOTE | 2018-06-02 07:20 | NUR ---
REPORT GIVEN TO SUMMER RN DAYSHIFT NURSE FOR CONTINUITY OF CARE.
--- NOTE | 2018-06-02 07:20 | NUR ---
BEDSIDE REPORT GIVEN FROM LONG WALL MINING MACHINE TENDER NURSE UMU. PT IN BED, DAUGHTER AT BEDSIDE, V/S TAKEN ALL WITHIN PTS BASELINE, PT AWAKE AND ALERT ABLE TO MAKE NEEDS KNOWN, IV IN RIGHT AC RUNNING NS AT 125 ML/HR. LEFT SIDE NEPHROSTOMY TUBE DRESSING INTACT, DRAINING YELLOW URINE, 50 ML IN BAG. CALL LIGHT WITHIN REACH WILL CONTINUE TO MONITOR.
[2018-06-02 08:00] VITALS: BP 125/45
--- NOTE | 2018-06-02 09:30 | NUR ---
PT RESTING IN BED NO SIGNS OF DISTRESS, CALL LIGHT WITHIN REACH, WILL CONTINUE TO MONITOR.
--- NOTE | 2018-06-02 12:00 | NUR ---
100 ML URINE OUTPUT NOTED AT THIS TIME. YELLOW, CLEAR. PT REPORTS URINE LOOKS DARKER THAN USUAL.
--- NOTE | 2018-06-02 12:06 | NUR ---
06/02/18 RD INITIAL ASSESSMENT COMPLETED PLEASE REFER TO NUTRITION ASSESSMENT UNDER CARE ACTIVITY FOR ESTIMATED NEEDS. RECOMMENDATIONS: 1.REGULAR DIET TOLERATED. 2.APPRECIATE FOOD PREFERENCES. 3.CONSIDER OBTAINING A FECAL FAT TEST IF C/F MALABSORPTION. 4. RD WILL FOLLOW UP IN 2-3 DAYS; HIGH RISK. STACY PEREIRA RD, [facility]
[2018-06-02] MEDS ORDERED: MORPHINE SULFATE 2 MG/ML SYR IVP PRN (13:55)
[2018-06-02] MEDS ORDERED: ACETAMINOPHEN 325 MG TAB PO PRN (13:55)
[2018-06-02] MEDS ORDERED: ONDANSETRON 4 MG/2 ML VIAL IVP PRN (13:55)
[2018-06-02] MEDS ORDERED: LEVOFLOXACIN 750 MG/D5W PREMIX 150 ML IV SCH (13:55)
--- NOTE | 2018-06-02 14:30 | NUR ---
FLUSH NEPHROSTOMY TUBE WITH 5 ML. TUBE PATENT, NO RESISTANCE FELT. COLLECTION BAG AT 150 ML, YELLOW URINE, NO SEDIMENTS.
[2018-06-02 16:00] VITALS: BP 115/64
--- NOTE | 2018-06-02 16:00 | NUR ---
CHANGED NEPHROSTOMY BAG EMPTIED 200 ML YELLOW URINE, SOME SEDIMENTS NOTED, NO FOUL ODER.
--- NOTE | 2018-06-02 16:51 | NUR ---
PT NEPHROSTOMY TUBE DRAINING 50 ML YELLOW URINE WITH SOME SEDIMENTS NOTED. WILL CONTINUE TO MONITOR.
--- NOTE | 2018-06-02 19:05 | NUR ---
BEDSIDE REPORT GIVEN TO RN VIRIDIANA, PT ANDREWS.
--- NOTE | 2018-06-02 19:06 | NUR ---
RECEIVED BEDSIDE REPORT FROM DAY SHIFT NURSE SHIV RN, PT STABLE, NO DISTRESS NOTED, IV TO RAC 20G RUNNING NS @ 100ML/HR, PATENT, INTACT, INFUSING WELL, PT ON ROOM AIR NO SOB, INITIAL ASSESSMENT DONE, ALL SAFETY PRECAUTION MET, WILL CONTINUE TO MONITOR.
--- NOTE | 2018-06-02 21:11 | NUR ---
PT AMBULATED AROUND UNIT ACCOMPANIED BY SIGNIFICANT OTHER, PT TOLERATED WELL, NO DISTRESS NOTED, PT WENT BACK TO BED, CALL LIGHT WITHIN REACH, WILL CONTINUE TO MONITOR.
--- NOTE | 2018-06-02 22:30 | NUR ---
FLUSHED PT NEPHROSTOMY TUBE, PT TOLERATED WELL, NO RESISTANCE FELT. EMPTIED 230ML OF URINE, YELLOW, NORMAL ODOR, WITH SEDIMENTS. PT RESTING, NO DISTRESS NOTED, CALL LIGHT WITHIN REACH, WILL CONTINUE TO MONITOR.
--- NOTE | 2018-06-02 23:56 | NUR ---
CHECKED ON PT, PT RESTING, NO DISTRESS NOTED, CALL LIGHT WITHIN REACH, WILL CONTINUE TO MONITOR.
[2018-06-03] VITALS: BP 114/53
--- NOTE | 2018-06-03 02:05 | NUR ---
PT SLEEPING, NO DISTRESS NOTED, CALL LIGHT WITHIN REACH, WILL CONTINUE TO MONITOR.
[2018-06-03] MEDS: NACL 0.9% 1,000 ML IV SCH ×2 (04:26→09:55)
--- NOTE | 2018-06-03 04:27 | NUR ---
CHECKED ON PT, PT SLEEPING, NO DISTRESS NOTED, IVF BAG CHANGED, CALL LIGHT WITHIN REACH, WILL CONTINUE TO MONITOR.
[2018-06-03 06:35] LABS: BASOPHILS % (AUTO) 0.5 % (0.0-2.0); EOSINOPHILS # (AUTO) 0.4 K/uL (0-0.4); EOSINOPHILS % (AUTO) 5.3 % (0.0-4.0); HEMATOCRIT 39.1 % (36-48); HEMOGLOBIN 12.7 g/dL (12.0-16.0); LYMPHOCYTES # (AUTO) 1.7 K/uL (2.5-16.5); LYMPHOCYTES % (AUTO) 24.9 % (20.5-51.1); MEAN CORPUSCULAR HEMOGLOBIN 30 pg (27-31); MEAN CORPUSCULAR HGB CONC 33 g/dL (33-37); MEAN CORPUSCULAR VOLUME 93.5 fL (80-94); MONOCYTES # (AUTO) 0.5 K/uL (0.8-1.0); MONOCYTES % (AUTO) 6.9 % (1.7-9.3); NEUTROPHILS # (AUTO) 4.2 K/uL (1.8-7.7); NEUTROPHILS % (AUTO) 62.4 % (42.2-75.2); PLATELET COUNT (AUTO) 159 K/uL (140-450); RED BLOOD CELL COUNT(AUTO) 4.18 MIL/uL (4.20-5.40); RED CELL DISTRIBUTION WIDTH 14.5 % (11.6-13.7); WHITE BLOOD COUNT (AUTO) 6.7 K/uL (4.8-10.8)
[2018-06-03 07:20] LABS: ALBUMIN 3.5 g/dL (3.4-5.0); CARBON DIOXIDE 21.5 mmol/L (21-32); CREATININE 0.7 mg/dL (0.6-1.3); POTASSIUM 3.5 mmol/L (3.5-5.1); TOTAL BILIRUBIN 0.4 mg/dL (0.0-1.0)
--- NOTE | 2018-06-03 07:30 | NUR ---
ENDORSED PT TO DAY SHIFT SHAHIDA RN, PT STABLE, NO DISTRESS NOTED, CALL LIGHT WITHIN REACH.
--- NOTE | 2018-06-03 07:32 | NUR ---
RECEIVED BEDSIDE REPORT FROM BIOSOLIDS MANAGEMENT TECHNICIAN NURSE. PATIENT IS SLEEPING. NO SIGNS OF DISTRESS. NEPHROSTOMY TUBE IS DRAINING CLEAR, YELLOW URINE 50ML OUTPUT. CLEAN, DRY AND INTACT. SKIN IS INTACT. IV ON R AC 20G INFUSING NS AT 100. CLEAN, DRY AND INTACT. SHE AMBULATES FINE PER BIOSOLIDS MANAGEMENT TECHNICIAN. BED IN LOW POSITION. CALL LIGHT WITHIN REACH. WILL CONTINUE TO MONITOR.
[2018-06-03 08:00] VITALS: BP 107/54
--- NOTE | 2018-06-03 09:00 | NUR ---
PATIENT ATTEMPTING TO EAT BREAKFAST. SHE SAID SHE DOESNT REALLY HAVE AN APPETITE. LEFT TRAY IN CASE SHE WANTS TO EAT LATER. WILL CONTINUE TO MONITOR THE PATIENT
--- NOTE | 2018-06-03 11:12 | NUR ---
PATIENT IS SLEEPING. NO SIGNS OF DISTRESS. BED IN LOW POSITION. CALL LIGHT WITHIN REACH
--- NOTE | 2018-06-03 13:23 | NUR ---
PATIENT SITTING IN BED. SHE MISSES HER FAMILY AND WANTS TO BE DISCHARGED. WILL AWAIT DR SOTO ARRIVAL. WILL CONTINUE TO MONITOR THE PATIENT
--- NOTE | 2018-06-03 15:00 | NUR ---
PATIENT IS SLEEPING. NO SIGNS OF DISTRESS ON ROOM AIR. WILL CONTINUE TO MONITOR THE PATIENT
--- NOTE | 2018-06-03 16:19 | NUR ---
REMOVED ID BANDS, REMOVED IV, IV TIP IS INTACT.
--- NOTE | 2018-06-03 16:20 | NUR ---
EDUCATED PATIENT ON DISEASE, ABN S/SX, HOW TO CARE FOR NEPHRO TUBE, EDUCATED ON CONTINUED MEDS, TO FOLLOW UP W UROLOGIST. PATIENT VERBALIZED UNDERSTANDING. ALL PAPERWORK SIGNED. PATIENT LEFT WALKING IN STABLE CONDITION W FAMILY
--- NOTE | 2018-06-04 10:16 | NUR ---
RETRO CM NOTE ER 'S NOTES, H&P, CONSULTATION NOTE FAXED TO [facility] [phone]
== END 2018-06-03 16:20 | disposition home or self-care (01) | DRG 466 ==
LOC: MED 21:27 → MTU 06-02 00:21
PROVIDERS: ADMIT Hospitalist; ATTEND Hospitalist
PROC: 0T25X0Z Change Drainage Device in Kidney, External Approach (ICD-10-PCS; principal; 2018-06-03)
DX: N99.522 Malfunction of incontinent external stoma of urinary tract (principal); E87.1 Hypo-osmolality and hyponatremia; J45.909 Unspecified asthma, uncomplicated; N39.0 Urinary tract infection, site not specified; N20.0 Calculus of kidney; Y83.8 Other surgical procedures as the cause of abnormal reaction of the patient, or of later complication, without mention of misadventure at the time of the procedure; Y82.8 Other medical devices associated with adverse incidents; Y92.89 Other specified places as the place of occurrence of the external cause; Z90.49 Acquired absence of other specified parts of digestive tract; Z80.51 Family history of malignant neoplasm of kidney; Z88.0 Allergy status to penicillin; Z88.8 Allergy status to other drugs, medicaments and biological substances; Z79.899 Other long term (current) drug therapy; Z90.5 Acquired absence of kidney; Z85.030 Personal history of malignant carcinoid tumor of large intestine; Z91.018 Allergy to other foods
CPT/HCPCS: 36415; 80053; 81001; 81025; 83605; 85025; 87040; 87081; 87086; 96365; 96366; 99285; J3370; J7030

== ENCOUNTER 2018-06-22 19:04 | Emergency (ER) | payer OTHER ==
[~2018-06-22] VITALS: Ht 170.2 cm; Wt 56.7 kg
[~2018-06-22 19:04] MED LIST changes: +HYDR25CA1 PO
[2018-06-22 19:14] VITALS: BP 109/71
--- NOTE | 2018-06-22 19:18 | NUR ---
TO BED # 9 AMBULATORY, REPORT GIVEN TO NAVEED RN
--- NOTE | 2018-06-22 19:27 | NUR ---
LEFT FLANK PAIN, BLOOD IN HER URINE FOR A DAY.FOR REPLACEMENT OF HER URINE BAG. PT HAS NOT OTHER COMPLAINTS AT THIS TIME. A/OX4.
--- NOTE | 2018-06-22 19:38 | NUR ---
Dr. Johnston evaluating patient at bedside.
--- NOTE | 2018-06-22 20:30 | NUR ---
NEPHROSTOMY BAG CHANGED. ER MADE AWARE.
[2018-06-22 20:35] VITALS: BP 119/81
--- NOTE | 2018-06-22 20:35 | NUR ---
Patient discharged with v/s stable. Written and verbal after care instructions given and explained. Patient verbalized understanding. Ambulatory with steady gait. All questions addressed prior to discharge. Advised to follow up with PMD.
--- NOTE | 2018-06-22 20:35 | NUR ---
PATIENT D/C BY DR. LUA.
== END 2018-06-22 20:35 | disposition home or self-care (01) ==
LOC: MED 19:04
DX: Z00.00 Encounter for general adult medical examination without abnormal findings (principal); Z02.89 Encounter for other administrative examinations; R31.9 Hematuria, unspecified; J45.909 Unspecified asthma, uncomplicated; Z88.6 Allergy status to analgesic agent; Z88.0 Allergy status to penicillin; Z88.8 Allergy status to other drugs, medicaments and biological substances; Z91.018 Allergy to other foods; Z85.038 Personal history of other malignant neoplasm of large intestine; Z90.49 Acquired absence of other specified parts of digestive tract; Z79.899 Other long term (current) drug therapy
CPT/HCPCS: 81002; 81025; 99283

== ENCOUNTER 2018-10-06 14:50 | Emergency (ER) | payer OTHER ==
[~2018-10-06] VITALS: Ht 170.2 cm; Wt 54.5 kg
[2018-10-06 14:53] VITALS: BP 137/84
--- NOTE | 2018-10-06 15:00 | NUR ---
38 Y/O F BIB FAMILY W/C/O RIGHT HAND/ARM PAIN SINCE MONDAY. PT REPORTS CRAMPING IN HAND AND "FINGERS FEEL NUMB." +ECCHYMOSIS NOTED TO EXTERNAL LATERAL PORTION OF R HAND. NO OBVIOUS DEFORMATIES NOTED. -EDEMA. PT TOOK [employer]. GRIMMACING NOTED. PT DENIES N/V/D; PT DENIES ANY FEVER, CP, SOB, OR COUGH AT THIS TIME; PT STATES 10/10 PAIN AT THIS TIME; VSS; PATIENT POSITIONED FOR COMFORT; HOB ELEVATED; BEDRAILS UP X2; BED DOWN. hx kidney stones, RA rx ibuprofen, steroid cream
--- NOTE | 2018-10-06 15:13 | NUR ---
PT SEEN CRACKING KNUCKLES IN ROOM AT THIS TIME ON RIGHT HAND .
[2018-10-06] MEDS ORDERED: MORPHINE SULFATE 4 MG/ML SYR IM ONE (15:40)
--- NOTE | 2018-10-06 15:55 | NUR ---
PT. TAKEN TO XRAY VIA WHEELCHAIR BY TECH
--- NOTE | 2018-10-06 16:11 | NUR ---
PT. IN BED 10/10 PAIN, RR EVEN AND UNLABORED. WILL CONTINUE TO MONITOR. ER MD STALEY MADE AWARE
[2018-10-06] MEDS ORDERED: ONDANSETRON 4 MG ODT PO ONE (16:40)
--- NOTE | 2018-10-06 16:40 | NUR ---
PT. C/O OF NAUSEA. ER MD STALEY MADE AWARE, ZOFRAN 4MG GIVEN. WILL CONTINUE TO MONITOR.
--- NOTE | 2018-10-06 16:46 | NUR ---
ER MD STALEY AT BEDSIDE AT THIS TIME
[2018-10-06 17:11] VITALS: BP 136/84
--- NOTE | 2018-10-06 17:11 | NUR ---
Patient discharged with v/s stable. Written and verbal after care instructions given and explained. Patient alert, oriented and verbalized understanding of instructions. Ambulatory with steady gait. All questions addressed prior to discharge. ID band removed. Patient advised to follow up with PMD. Rx of norco 5/325, zofran given. Patient educated on indication of medication including possible reaction and side effects. Opportunity to ask questions provided and answered.pt c/o nausea still er md patel notified, per md " okay to be discharged with prescriptions".
== END 2018-10-06 17:11 | disposition home or self-care (01) ==
LOC: MED 14:50
DX: S60.221A Contusion of right hand, initial encounter (principal); J45.909 Unspecified asthma, uncomplicated; Z85.038 Personal history of other malignant neoplasm of large intestine; Z88.0 Allergy status to penicillin; Z88.6 Allergy status to analgesic agent; Z79.899 Other long term (current) drug therapy; W22.8XXA Striking against or struck by other objects, initial encounter; Y93.89 Activity, other specified; Y92.89 Other specified places as the place of occurrence of the external cause; Y99.8 Other external cause status
CPT/HCPCS: 73130; 96372; 99283; J2270; Q0162

== ENCOUNTER 2018-11-13 08:27 | Day surgery (SDC) | payer OTHER ==
[~2018-11-13] VITALS: Ht 170.2 cm; Wt 59.0 kg
[2018-11-13] MEDS ORDERED: CLINDAMYCIN PHOS 600MG/D5W PM 50 ML IV ONE (08:45)
[2018-11-13] MEDS ORDERED: BUPIVACAINE-MPF/EPI 0.25% 30 ML VIAL INJ ONE (09:59)
[2018-11-13] MEDS ORDERED: fentaNYL 0.05 MG/ML VIAL ONE (10:09)
[2018-11-13] MEDS ORDERED: MEPERIDINE 50 MG/ML SYR ONE (10:09)
[2018-11-13] MEDS ORDERED: MIDAZOLAM 2 MG/2 ML VIAL ONE (10:09)
[2018-11-13] MEDS ORDERED: ONDANSETRON 4 MG/2 ML VIAL ONE (10:20)
[2018-11-13] MEDS ORDERED: PROPOFOL 200 MG/20 ML VIAL IV ONE (10:20)
[2018-11-13] MEDS ORDERED: KETOROLAC 30 MG/ML VIAL ONE (10:20)
[2018-11-13] MEDS ORDERED: DEXAMETHASONE 4 MG/ML VIAL ONE (10:20)
[2018-11-13] MEDS ORDERED: SEVOFLURANE 250 ML BTL INH ONE (10:20)
[2018-11-13] MEDS ORDERED: LACTATED RINGERS 1,000 ML IV SCH (11:02)
[2018-11-13] MEDS ORDERED: ONDANSETRON 4 MG/2 ML VIAL IVP PRN (11:05)
[2018-11-13] MEDS ORDERED: HYDROmorphone 1 MG/ML AMP IVP PRN ×2 (11:05→12:10)
[2018-11-13] MEDS ORDERED: MEPERIDINE 25 MG/ML SYR IVP PRN (11:05)
[2018-11-13] MEDS ORDERED: ONDANSETRON 4 MG/2 ML VIAL IV PRN (12:10)
[2018-11-13] MEDS ORDERED: MORPHINE SULFATE 4 MG/ML SYR IV PRN (12:10)
[2018-11-13] MEDS ORDERED: MORPHINE SULFATE 2 MG/ML SYR IVP PRN (12:10)
[2018-11-13] MEDS ORDERED: HYDROcodone/APAP 5/325 MG 1 TAB TAB PO PRN (12:10)
== END 2018-11-13 13:25 | disposition home or self-care (01) ==
LOC: MDS 08:27 → MMU 08:34 → MDS 13:25
PROVIDERS: ATTEND Surgery
DX: L72.0 Epidermal cyst (principal); J45.909 Unspecified asthma, uncomplicated; F15.90 Other stimulant use, unspecified, uncomplicated; G43.909 Migraine, unspecified, not intractable, without status migrainosus; Z90.49 Acquired absence of other specified parts of digestive tract; Z98.890 Other specified postprocedural states; Z91.011 Allergy to milk products; Z88.0 Allergy status to penicillin; Z88.8 Allergy status to other drugs, medicaments and biological substances; Z91.018 Allergy to other foods; Z85.038 Personal history of other malignant neoplasm of large intestine; Z82.3 Family history of stroke; Z80.0 Family history of malignant neoplasm of digestive organs
CPT/HCPCS: 11403; 11406; 71045; 88304; J1100; J1885; J2175; J2250; J2405; J2704; J3010; J3490; J7120

== ENCOUNTER 2019-07-15 09:48 | Emergency (ER) | payer OTHER ==
[~2019-07-15] VITALS: Ht 170.2 cm; Wt 69.1 kg
[2019-07-15 09:56] VITALS: BP 134/75
--- NOTE | 2019-07-15 10:10 | NUR ---
PT TO ED FOR C/O NECK PAIN S/P STRETCHING WITH LEFT ARM THIS AM APPROX 1 HR AGO. PT STATES "I WAS STRETCHING MY LEFT ARM THEN HEARD A POP 3X" LIMITED ROM OF NECK IRMA TO PAIN. CMS INTACT. PT IN BED FOR MD CARDENAS. Addendum: 07/15/19 at 1242 by MEDRI Amendment undone in EDM - 07/15/19 at 1242 by MANDY Patient discharged with v/s stable. Written and verbal after care instructions given and explained. Patient alert, oriented and verbalized understanding of instructions. Ambulatory with steady gait. All questions addressed prior to discharge. ID band removed. Patient advised to follow up with PMD. Rx of MOTRIN, NORCO given. Patient educated on indication of medication including possible reaction and side effects. Opportunity to ask questions provided and answered.
[2019-07-15] MEDS ORDERED: KETOROLAC 60 MG/2 ML VIAL IM ONE (10:40)
--- NOTE | 2019-07-15 11:00 | NUR ---
PT REPORTING RELIEF OF PAIN S/P TORADOL ADMIN. WILL CONTNIUE TO MONITOR.
[2019-07-15 12:41] VITALS: BP 127/81
== END 2019-07-15 12:42 | disposition home or self-care (01) ==
LOC: MED 09:48
DX: S13.4XXA Sprain of ligaments of cervical spine, initial encounter (principal); M25.512 Pain in left shoulder; J45.909 Unspecified asthma, uncomplicated; Z85.038 Personal history of other malignant neoplasm of large intestine; Z98.890 Other specified postprocedural states; Z88.6 Allergy status to analgesic agent; Z88.0 Allergy status to penicillin; Z88.8 Allergy status to other drugs, medicaments and biological substances; Z91.018 Allergy to other foods; X58.XXXA Exposure to other specified factors, initial encounter; Y93.89 Activity, other specified; Y92.89 Other specified places as the place of occurrence of the external cause; Y99.8 Other external cause status
CPT/HCPCS: 96372; 99283; J1885

== ENCOUNTER 2020-01-19 12:57 | Emergency (ER) | payer OTHER ==
[~2020-01-19] VITALS: Ht 170.2 cm; Wt 82.3 kg
--- NOTE | 2020-01-19 13:04 | NUR ---
PT AMBULATED TO ER BED 6
[2020-01-19 13:08] VITALS: BP 128/68
--- NOTE | 2020-01-19 13:13 | NUR ---
39 YO F C/C OF SPOTTING DURING . PINK SPOTTING BEGAN THIS MORNING ALONG WITH SHARP PAIN IN HER LLQ THAT COMES AND GOES. PT DESCRIBES THE PAIN MILD 5/10 AND DENIES TAKING ANY OTC MEDS FOR PAIN. PT STATES HER LMP WAS 208 AND BELIEVES SHE IS 6-7 WEEKS . DENIES RECIEVING ANY PRENTAL CARE THUS FAR. PT STATES SHE HAS 5 LIVING CHILDREN, LAST FULL TERM WAS 2010. PT DENIES TRAVEL OUTSIDE OF THE [place]. SIDE RAILS X1. RX: VITAMINS HX: MISCARRAIGE IN 2016, COLON CANCER AT AGE 15, RENAL SURGERY IN 2018 ALLERGIES: PENICILLIN
--- NOTE | 2020-01-19 13:26 | NUR ---
ERMD BEDSIDE EVALUATING PT
--- NOTE | 2020-01-19 13:47 | NUR ---
ULTRASOUND AT BEDSIDE.
--- NOTE | 2020-01-19 13:57 | NUR ---
PT AMBULATED TO BATHROOM, STEADY GAIT.
--- NOTE | 2020-01-19 14:00 | NUR ---
LAB AT BEDSIDE.
[2020-01-19 14:25] LABS: BASOPHILS # (AUTO) 0.1 K/uL (0.00-0.22); BASOPHILS % (AUTO) 0.8 % (0.0-2.0); EOSINOPHILS # (AUTO) 0.1 K/uL (0-0.4); EOSINOPHILS % (AUTO) 0.7 % (0.0-4.0); HEMATOCRIT 39.8 % (36-48); LYMPHOCYTES # (AUTO) 1.2 K/uL (2.5-16.5); LYMPHOCYTES % (AUTO) 17.2 % (20.5-51.1); MEAN CORPUSCULAR HEMOGLOBIN 30 pg (27-31); MEAN CORPUSCULAR HGB CONC 33 g/dL (33-37); MEAN CORPUSCULAR VOLUME 92.7 fL (80-94); MONOCYTES # (AUTO) 0.4 K/uL (0.8-1.0); MONOCYTES % (AUTO) 5.5 % (1.7-9.3); NEUTROPHILS # (AUTO) 5.1 K/uL (1.8-7.7); NEUTROPHILS % (AUTO) 75.8 % (42.2-75.2); PLATELET COUNT (AUTO) 198 K/uL (140-450); RED BLOOD CELL COUNT(AUTO) 4.29 MIL/uL (4.20-5.40); RED CELL DISTRIBUTION WIDTH 15.3 % (11.6-13.7); WHITE BLOOD COUNT (AUTO) 6.7 K/uL (4.8-10.8)
[2020-01-19 14:29] LABS: APPEARANCE,URINE CLOUDY (CLEAR); BILIRUBIN,URINE NEGATIVE (NEGATIVE); BLOOD, URINE TRACE-L (NEGATIVE); COLOR,URINE YELLOW (YELLOW); LEUKOCYTE ESTERASE ,URINE 2+ (NEGATIVE); NITRITE, URINE POSITIVE (NEGATIVE); PH,URINE 6.5 (5.0-9.0); UGLUCOSE NEGATIVE (NEGATIVE)
[2020-01-19 14:41] LABS: CARBON DIOXIDE 27.6 mmol/L (21-32); CREATININE 0.9 mg/dL (0.6-1.3); POTASSIUM 3.6 mmol/L (3.5-5.1)
[2020-01-19 15:19] LABS: RBC,URINE 0 /HPF (0-5); WBC,URINE 16-25 (MOD) /HPF (0-5)
[2020-01-19 16:28] VITALS: BP 142/66
== END 2020-01-19 16:28 | disposition home or self-care (01) ==
LOC: MED 12:57
DX: O26.891 Other specified pregnancy related conditions, first trimester (principal); O23.41 Unspecified infection of urinary tract in pregnancy, first trimester; Z88.6 Allergy status to analgesic agent; Z88.0 Allergy status to penicillin; Z91.018 Allergy to other foods; Z91.011 Allergy to milk products
CPT/HCPCS: 36415; 76817; 80048; 81001; 81025; 84702; 85025; 86900; 86901; 87086; 87186; 99284; Q0092

== ENCOUNTER 2020-05-01 14:42 | Emergency (ER) | payer OTHER ==
[~2020-05-01] VITALS: Ht 172.7 cm; Wt 83.5 kg
[2020-05-01 14:46] VITALS: BP 142/69
--- NOTE | 2020-05-01 15:09 | NUR ---
39 y/o female from home c/o neck pain since yesterday s/p stretching. states she felt 3 "pops" in her neck. pt has full range of motion to neck. rr even and unlabored. no deformities noted. rr even and unlabored. vss medhx: colon cancer, renal
[2020-05-01] MEDS ORDERED: ONDANSETRON 4 MG ODT PO ONE (15:10)
[2020-05-01] MEDS ORDERED: KETOROLAC 30 MG/ML VIAL IM ONE (15:10)
--- NOTE | 2020-05-01 15:12 | NUR ---
Pascual Aviles at bedside examining pt
--- NOTE | 2020-05-01 15:32 | NUR ---
PT STATES SHE IS UNABLE TO URINATE FOR TEST, PT STATES THAT NO CHANCE OF AND OK FOR MEDICATIONS. MELISSA LUCIA MADE AWARE
[2020-05-01 15:57] VITALS: BP 142/69
== END 2020-05-01 15:58 | disposition home or self-care (01) ==
LOC: MED 14:42
DX: M54.12 Radiculopathy, cervical region (principal); F17.200 Nicotine dependence, unspecified, uncomplicated; J45.909 Unspecified asthma, uncomplicated; N28.9 Disorder of kidney and ureter, unspecified; Z88.0 Allergy status to penicillin; Z88.6 Allergy status to analgesic agent; Z90.49 Acquired absence of other specified parts of digestive tract; Z91.018 Allergy to other foods; Z85.9 Personal history of malignant neoplasm, unspecified; Z85.038 Personal history of other malignant neoplasm of large intestine
CPT/HCPCS: 96372; 99283; J1885; Q0162

== ENCOUNTER 2020-05-18 20:23 | Emergency (ER) | payer OTHER ==
[~2020-05-18] VITALS: Ht 175.3 cm; Wt 81.6 kg
[2020-05-18 20:35] VITALS: BP 133/58
== END 2020-05-18 22:03 | disposition home or self-care (01) ==
LOC: MED 20:23
DX: L03.115 Cellulitis of right lower limb (principal); J45.909 Unspecified asthma, uncomplicated; N28.9 Disorder of kidney and ureter, unspecified; Z88.0 Allergy status to penicillin; Z88.6 Allergy status to analgesic agent; Z91.02 Food additives allergy status; Z88.8 Allergy status to other drugs, medicaments and biological substances; Z85.038 Personal history of other malignant neoplasm of large intestine; Z90.49 Acquired absence of other specified parts of digestive tract
CPT/HCPCS: 99283